=== PATIENT | female | born 1945 | race African-American/Black ===

== ENCOUNTER 2019-07-11 09:46 | Emergency (ER) | payer OTHER ==
[~2019-07-11] VITALS: Ht 152.4 cm; Wt 63.0 kg
[2019-07-11] MEDS ORDERED: ATACAND16 MG PO (11:00)
[2019-07-11] MEDS ORDERED: REPATHA PU420 MG/3.5 SUBCUTANEO (11:01)
== END 2019-07-11 15:08 | disposition home or self-care (01) ==
LOC: ER 09:46
DX: M25.551 Pain in right hip (principal); M79.651 Pain in right thigh